=== PATIENT | female | born 1990 | race Two or more races ===

== ENCOUNTER 2019-07-07 12:32 | Emergency (ER) | payer OTHER ==
[~2019-07-07] VITALS: Ht 162.6 cm; Wt 57.2 kg
[2019-07-07] MEDS ORDERED: NKM (12:39)
--- NOTE | 2019-07-07 13:37 | Emergency Room Report ---
History of Present Illness General Chief Complaint: Pain Source: Patient Present Illness HPI 29 YO female presents to the ED C/O 05/05 in severity progressive left forearm muscular pain and tenderness. PT. reports intermittent symptoms since May, however rapid progression and increased in severity of pain after lifting a really heavy box at work on 07/05/19. 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 She endorses performing this type of work since May. Pt. denies specific trauma or fall. She is right hand dominant. pt. reports raising her arm at the elbow, typing, or twisting of the forearm or left wrist exacerbate her symptoms. She reports burning sensation medially and intermittent tingling. Denies constant numbness tingling or loss of sensation or gross motor movements of the extremities. Denies CP, Palpitations, LOC, AMS, dizziness, Changes in Vision, weakness or a sudden severe headache. Allergies: Coded Allergies: No Known Allergies (Unverified , 07/07/19) Patient History Past Medical History: see triage record Past Surgical History: none Pertinent Family History: none Last Menstrual Period: 06/20/19 Now: No Reviewed Nursing Documentation: PMH: Agreed; PSxH: Agreed Nursing Documentation-PMH Past Medical History: No Stated History Review of Systems All Other Systems: negative except mentioned in HPI Physical Exam Vital Signs Date Time Temp Pulse Resp B/P (MAP) Pulse Ox O2 Delivery O2 Flow Rate FiO2 07/07/19 12:35 98.2 85 18 136/95 (109) 99 Room Air Sp02 EP Interpretation: reviewed, normal General Appearance: no apparent distress, alert, GCS 15, non-toxic Head: normocephalic, atraumatic Eyes: bilateral eye normal inspection, bilateral eye PERRL ENT: hearing grossly normal, normal voice Neck: full range of motion Respiratory: lungs clear, normal breath sounds, speaking full sentences Cardiovascular #1: regular rate, rhythm, normal capillary refill Cardiovascular #2: 2+ radial (L) Musculoskeletal: back normal, gait/station normal, normal range of motion, tender - TTP TO the musculature of the forearm: brachioradialis, and the distal left bicep, No bony ttp, FROM with some pain, no swelling, no bruises, no obvious deformities, no clicking with bending at the elebow joint. no wrist drop. Neurologic: alert, oriented x3, responsive, motor strength/tone normal, sensory intact, speech normal, grossly normal Psychiatric: judgement/insight normal Skin: no rash, normal color Lymphatic: no adenopathy Medical Decision Making PA Attestation Dr. Luu is my supervising Physician whom patient management has been discussed with. Diagnostic Impression: Primary Impression: Muscle strain of forearm Qualified Codes: S56.912A - Strain of unspecified muscles, fascia and tendons at forearm level, left arm, initial encounter Additional Impression: Overuse syndrome ER Course 29 YO female presents to the ED C/O 05/05 in severity progressive left forearm muscular pain and tenderness. PT. reports intermittent symptoms since May, however rapid progression and increased in severity of pain after lifting a really heavy box at work on 07/05/19. 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 She endorses performing this type of work since May. Pt. denies specific trauma or fall. She is right hand dominant. pt. reports raising her arm at the elbow, typing, or twisting of the forearm or left wrist exacerbate her symptoms. She reports burning sensation medially and intermittent tingling. Denies constant numbness tingling or loss of sensation or gross motor movements of the extremities. Denies CP, Palpitations, LOC, AMS, dizziness, Changes in Vision, weakness or a sudden severe headache. Ddx considered but are not limited to Fracture, dislocation, contusion, Sprain/ Strain/Spasm, tendonitis, overuse syndrome. Vital signs: are WNL, pt. is afebrile H&PE are most consistent with musculoskeletal injury will perform imaging to r/ o fractures/dislocations. ORDERS: - Radiological imaging is not warranted as there is no suspicion for a fracture , there is no localized bony tenderness, and no PE evidence to suggest acute circulatory compromise or focal neurological deficit. ED INTERVENTIONS: -Left wrist/thumb spika splint applied by mold tooling technician. Pt. remains neurovascularly intact. -- Left arm Sling applied by mold tooling technician. Pt. remains neurovascularly intact. -I do not identify an emergent condition at this time. With current presentation , pt. is stable for close outpatient follow up and conservative treatment. D/ w pt. to return promptly to ED with worsening or new symptoms.- Pt. verbalizes' understanding and agreement with proposed treatment plan.proposed treatment plan. DISCHARGE: At this time pt. is stable for d/c to home. Will provide printed patient care instructions, and any necessary prescriptions. Care plan and follow up instructions have been discussed with the patient prior to discharge. Last Vital Signs Date Time Temp Pulse Resp B/P (MAP) Pulse Ox O2 Delivery O2 Flow Rate FiO2 07/07/19 12:35 98.2 85 18 136/95 (109) 99 Room Air Status: improved Disposition: HOME, SELF-CARE Condition: Stable Scripts Naproxen* (NAPROXEN*) 500 Mg Tablet 500 MG ORAL TWICE A WEEK, #28 TAB 0 Refills Prov: Cortney Malik 07/07/19 Referrals: NOT CHOSEN IPA/MD,REFERRING (PCP) Departure Forms: Return to Work Return to Work Date: Jul 12, 2019 Work Restrictions: No Heavy Lifting Other Restrictions: limited use of left arm/hand. May return Sooner if Symptoms have resolved. Return to Full Activity: Jul 19, 2019 Patient Instructions: Muscle Strain, [id number], Repetitive Strain Injuries Additional Instructions: Take medications as directed. Follow up with a Primary Care Provider in 3-5 days, even if your symptoms have resolved. Return sooner to ED if new symptoms occur, or current symptoms become worse. - Please note that this Emergency Department Report was dictated using [employer] eng technology software, occasionally this can lead to erroneous entry secondary to interpretation by the dictation equipment. Cortney Malik Jul 07, 2019 13:37
[2019-07-07] MEDS ORDERED: NAPROXEN500 M2 ORAL (13:39)
--- NOTE | 2019-07-07 14:00 | NUR ---
ER DISCHARGE NOTE:wrist splint and arm sling were placed on left arm Patient is cleared to be discharged per ERMD, pt is aox4, on room air, with stable vital signs. pt was given dc and prescription instructions, pt was able to verbalize understanding, pt is able to ambulate with steady gait. pt took all belongings.
[2019-07-07 14:18] VITALS: BP 136/95
== END 2019-07-07 14:00 | disposition home or self-care (01) ==
LOC: EMR 12:50
DX: S56.912A Strain of unspecified muscles, fascia and tendons at forearm level, left arm, initial encounter (principal); M70.832 Other soft tissue disorders related to use, overuse and pressure, left forearm; X50.0XXA Overexertion from strenuous movement or load, initial encounter; Y92.219 Unspecified school as the place of occurrence of the external cause; Y99.0 Civilian activity done for income or pay
CPT/HCPCS: 29130; 99283